=== PATIENT | female | born 1985 | race Caucasian/White ===

== ENCOUNTER 2020-09-21 15:52 | Outpatient (REF) | payer OTHER, SELFPAY ==
--- NOTE | 2020-09-21 | US_ITS ---
EXAMINATION: US PELVIC ULTRASOUND CLINICAL INFORMATION: Pelvic pain. COMPARISON: Prior imaging exams, most recent pelvic ultrasound November 2018. TECHNIQUE: Transabdominal and transvaginal pelvic ultrasound performed. FINDINGS: Uterus: 7.5 x 3.6 x 4.7 cm. Endometrial thickness 0.6 cm. No masses. Right ovary 3 x 1.7 x 1.6 cm with a volume of 4.3 mm. No masses. Left ovary: 3.3 x 2.5 x 2.1 cm with a volume of 9.1 mL. Cyst measuring 1.4 x 1.1 x 1.6 cm. Miscellaneous: Nabothian cysts noted. US/US transvaginal IMPRESSION: Cyst in the left ovary measuring approximately 1.5 cm.
--- NOTE | 2020-09-21 | US_ITS ---
EXAMINATION: US PELVIC ULTRASOUND CLINICAL INFORMATION: Pelvic pain. COMPARISON: Prior imaging exams, most recent pelvic ultrasound November 2018. TECHNIQUE: Transabdominal and transvaginal pelvic ultrasound performed. FINDINGS: Uterus: 7.5 x 3.6 x 4.7 cm. Endometrial thickness 0.6 cm. No masses. Right ovary 3 x 1.7 x 1.6 cm with a volume of 4.3 mm. No masses. Left ovary: 3.3 x 2.5 x 2.1 cm with a volume of 9.1 mL. Cyst measuring 1.4 x 1.1 x 1.6 cm. Miscellaneous: Nabothian cysts noted. US/US pelvic complete IMPRESSION: Cyst in the left ovary measuring approximately 1.5 cm.
== END 2020-09-21 15:53 | disposition home or self-care (01) ==
LOC: HO.US 15:52
PROVIDERS: PCP Physician Assistant; Visit Provider Physician Assistant
DX: R10.2 Pelvic and perineal pain (principal)
CPT/HCPCS: 76830; 76856

== ENCOUNTER 2024-12-30 09:56 | Outpatient (REF) | payer BC, SELFPAY ==
--- NOTE | ~2024-12-30 | XR_ITS ---
CLINICAL HISTORY: LUMBAGO WITH SCIATICA, LEFT SIDE 3 views lumbar spine Comparison: None Findings: Normal alignment. No acute fractures or dislocation. No significant degenerative change. Mild lower lumbar facet arthritis. Partial ossification of the iliolumbar ligaments. Bilateral sacroiliitis. IMPRESSION: Bilateral sacroiliitis. Mild lower lumbar facet arthritis. Otherwise negative. This document has been electronically signed by: Guillermo Mata MD on 12/30/2024 13:14:48
--- OUTSIDE RECORDS SUMMARY | 2024-12-30 10:26 | XMS_ITS ---
Author Organization [facility] Address [address] [place] [address] Care Team Providers Care Promotions Coordinator Name Role Phone RIP YU Unavailable [phone] ALLERGIES Allergen (clinical drug ingredient) Drug/Non Drug Allergy documented on EMR Reaction Allergy Type Onset Date Status bupropion / naltrexone Contrave hives Drug Allergy 07/13 Active REASON FOR VISIT Patient presents for weight management follow up. Previous weight was 159.4lbs. Current weight standing is 154.2lbs. Seca declined. No acute concerns needed to be addressed MEDICATIONS Medication SIG (Take, Route, Fr equency, Duration) Notes Start Date End Date Status Wegovy 1.7 MG/0.75ML 1.7 mg Subcutaneous weekly for 30 days Active methIMAzole 5 MG 1/2 tablet Orally Once a day Active Wegovy 1.7 MG/0.75ML INJECT 1.7MG SUBCUT ANEOUSLY WEEKLY for 28 Active SOCIAL HISTORY Tobacco Use: Social History Observation Description Date Details (start date - stop date) Never Smoker NA - NA Sex Assigned At : Social History Observation Description Sex Assigned At Unknown Tobacco Use/Smoking Question Answer Notes Are you a nonsmoker Section Notes: Alcohol: denies tob: denies drug: denies caffeine: coffee occasionally VITAL SIGNS Heart Rate 72 /min 11/13/2024 Blood pressure systolic 118 mm Hg 11/13/19 25 Blood pressure diastolic 78 mm Hg 025 Weight 154.2 lbs 11/13/2024 BMI 28.2 kg/m2 11/13/2024 Height 62 in 11/13/2024 Oximetry 99 % 11/13/2024 Encounters Encounter Location Date Provider Diagnosis [facility] [address] [place] [address] 11/13/2024 RIP YU BMI 28.0-28.9,adult Z68.28 ; Over weight E66.3 ; Hyperthyroidism E05.90 and Nutritional counseling Z71.3 ASSESSMENTS Encounter Date Diagnosis Assessment Notes Treatment Notes Treatment Clinical Notes Section Notes 11/13/2024 BMI 28.0-28.9,adult (ICD-10 - Z68.28) Joycelyn Is a 37-year-old female who presents office for a weight management f/u. 01/02/23: weight 191.5, BMI 35.02- Discuss lifestyle modification is extensively, LAYA cunha. [facility] provided. Patient to work on lifestyle modifications for the next four weeks, focusing on increasing water intake, stress reduction, sleep, high-protein, low carbohydrate, healthy fat. Will consider medication at next visit including phentermine, Contrave, Topamax, metformin. May consider GLP-1 after three consecutive months of weight loss, or pending labs as insulin and hemoglobin A-1 C were ordered today. 02/12/23: weight 1 93.3, BMI 35.35- patient encouraged to continue with lifestyle modifications. She is currently breast-feeding her [id number] child, and therefore recommended to not start any weight loss medications at this time. She plans on discontinuing breast-feeding in the next four weeks, so will consider medications at next visit including phentermine or Wegovy. She has taken phentermine in the past with success, but is looking for more long-term medication. Patient encouraged to continue going to the gym, being more consistent. Congratulate efforts of trying to improve meal planning.Patient drink plenty of water.Diabetic labs without concern. 03/25/23: Weight 191.3, BMI 34.99- patient presented today for weight management follow up. She had been taking 0.25mg of Wegovy for two weeks and has had potential associated side effects of diarrhea and N/V. She does admit it may be due to possible food poisoning from eating bad salmon on Saturday. She was told to continue the next two weeks on Wegovy and monitor side effects and to call this office if she continues with side effects. She was reeducated on appropriate injector use. Patient was also congratualted on progress made and encouraged to conitnue lifestyle changes. She will follow up in 4 weeks. 05/22/23: 183.87lbs/33, Patient states she has not been on Wegovy due to the fact that Wegovy is not in stock in any pharmacy. He does not want to try phentermine as she states that this is something that her bush hog operator has advised her not to be taking with her methimazole. We discussed with her that the only other FDA approved injectable medication for weight loss that can be prescribed through the pharmacy is Saxenda. We can try to send this to her pharmacy and see if there is availability as well as if her insurance will cover it. I will send the medication today. Instructed on use. Patient also was informed of compounded semaglutide if this medication is not available/in stock/if her insurance denies it. Patient is hesitant due to the ocampo. Discussed with her that options are limited and that these medications are in high wanted volume. 06/20/2023: Weight 180.8, BMI 33.07. Patient congratulated on effort. Is continuing to lose weight with success. We had to stop the Wegovy because of supply concern, so she was prescribed Saxenda last visit. We also discussed compounded semaglutide again, but she would like to continue through Saxenda through pharmacy until Wegovy becomes available again. She was not thoroughly educated on proper use of medication and how to taper, therefore extensively educated patient to do so today. Educated on 0.6 mg daily x 1 week, 1.2 mg daily x 1 week, 1.8 mg daily x 1 week, 2.4 mg daily x 1 week and 3.0 as therapeutic dose. Refilled Saxenda and pen needles. Educated on side effects as well. Patient understanding and thankful. Encouraged to continue with lifestyle modifications. Will follow-up in 4 weeks, sooner as needed. 01/27/24: BMI 31, Weight 172 lbs. Unable to find Saxenda or Wegovy secondary to national shortages. Patient does have [employer], therefore we will do Zepbound. We did talk about compounded semaglutide, but patient is worried about affordability. Dosing and pricing was discussed at length with the patient, for 2 months of doing the dosing. Patient will think about it. If Zepbound is covered, this could be an option. She is unable to tolerate Contrave secondary to an allergic reaction, and cannot go on phentermine secondary to hyperthyroidism. Patient educated on proper protein and hydration. Patient verbalizes understanding. Will see her in 4 weeks. 04/07/2024: Weight 175.5, BMI 32.1. Patient's weight overall unchanged, will continue with semaglutide 0.5 mg, and submit for Wegovy 1 mg. Discussed proper use, side effects, long-term risk, and lifestyle. Patient understanding. Discussed national shortage and prior authorization process. 05/27/2024: Weight 166, BMI 30.45. Patient congratulated and effort, continuing to lose slow, steady weight. Goal weight is around 150 pounds. Patient taking Wegovy 1 mg, has been great being mindful with portion control, water intake, less stress, and has been exercising more at the [facility]. Continue with Wegovy 1 mg, provided a prescription to [facility] pharmacy, but also a handwritten prescription due to concern with supply. Patient will follow-up in July. In the meantime, may need to refill, can continue with 1 mg of Wegovy or consider going up to 1.7 depending on progress. 07/30/2024: Weight 160, BMI 29.3. Patient congratulated on effort. In to the overweight category. Continue with Wegovy 1.7 mg. Going to increase the intensity/the amount of weight that she is lifting twice weekly at the gym. Implementing more protein. 09/21/2024: Weight 159, BMI 29.15. Patient's weight has maintained overall but when reviewing body scan she lost a pound of fat, gained half a pound of muscle. Pleased with progress. Will continue with Wegovy 1.7, not interested in increasing dose. Is actually interested in potentially tapering off of medication, the new year. Will follow-up in 8 weeks. Continue with increased protein and resistance training. 11/13/2024: Weight 154, BMI 28. Patient congratulated on effort. Continue with Wegovy 1.7 mg. Follow-up in 6 weeks for body scan. Patient states that her goal weight is 150 pounds, for which she is almost there. Wants to start tapering off the medication, by the end of spring/beginning of summer. Patient follow-up in 6 weeks or sooner as needed #Thyroid disease: patient to continue methimazole 5 mg. [employer]/A[employer] Observer/Gunner does not want patient taking phentermine as a weight loss medication. Time spent with patient 30 minutes with greater than 50% on patient education and care coordination. All patient questions answered in office today. Patient should call the office in the meantime with any questions or concerns. Case discussed with collaborating physician Nani Benitez who reviewed the assessment and plan. Chart, medications, labs, vital signs reviewed. Dictation was accomplished with the use of IMT voice recognition software, prone to medical misidentifications and grammatical errors. This is unintentional and the practitioner does try to identify and correct these, but some could still be present. Please do not hesitate to contact practitioner for clarification. 11/13/2024 Over weight (ICD-10 - E66.3) Joycelyn Is a 37-year-old female who presents office for a weight management f/u. 01/02/23: weight 191.5, BMI 35.02- Discuss lifestyle modification is extensively, LAYA cunha. [facility] provided. Patient to work on lifestyle modifications for the next four weeks, focusing on increasing water intake, stress reduction, sleep, high-protein, low carbohydrate, healthy fat. Will consider medication at next visit including phentermine, Contrave, Topamax, metformin. May consider GLP-1 after three consecutive months of weight loss, or pending labs as insulin and hemoglobin A-1 C were ordered today. 02/12/23: weight 1 93.3, BMI 35.35- patient encouraged to continue with lifestyle modifications. She is currently breast-feeding her [id number] child, and therefore recommended to not start any weight loss medications at this time. She plans on discontinuing breast-feeding in the next four weeks, so will consider medications at next visit including phentermine or Wegovy. She has taken phentermine in the past with success, but is looking for more long-term medication. Patient encouraged to continue going to the gym, being more consistent. Congratulate efforts of trying to improve meal planning.Patient drink plenty of water.Diabetic labs without concern. 03/25/23: Weight 191.3, BMI 34.99- patient presented today for weight management follow up. She had been taking 0.25mg of Wegovy for two weeks and has had potential associated side effects of diarrhea and N/V. She does admit it may be due to possible food poisoning from eating bad salmon on Saturday. She was told to continue the next two weeks on Wegovy and monitor side effects and to call this office if she continues with side effects. She was reeducated on appropriate injector use. Patient was also congratualted on progress made and encouraged to conitnue lifestyle changes. She will follow up in 4 weeks. 05/22/23: 183.87lbs/33, Patient states she has not been on Wegovy due to the fact that Wegovy is not in stock in any pharmacy. He does not want to try phentermine as she states that this is something that her bush hog operator has advised her not to be taking with her methimazole. We discussed with her that the only other FDA approved injectable medication for weight loss that can be prescribed through the pharmacy is Saxenda. We can try to send this to her pharmacy and see if there is availability as well as if her insurance will cover it. I will send the medication today. Instructed on use. Patient also was informed of compounded semaglutide if this medication is not available/in stock/if her insurance denies it. Patient is hesitant due to the ocampo. Discussed with her that options are limited and that these medications are in high wanted volume. 06/20/2023: Weight 180.8, BMI 33.07. Patient congratulated on effort. Is continuing to lose weight with success. We had to stop the Wegovy because of supply concern, so she was prescribed Saxenda last visit. We also discussed compounded semaglutide again, but she would like to continue through Saxenda through pharmacy until Wegovy becomes available again. She was not thoroughly educated on proper use of medication and how to taper, therefore extensively educated patient to do so today. Educated on 0.6 mg daily x 1 week, 1.2 mg daily x 1 week, 1.8 mg daily x 1 week, 2.4 mg daily x 1 week and 3.0 as therapeutic dose. Refilled Saxenda and pen needles. Educated on side effects as well. Patient understanding and thankful. Encouraged to continue with lifestyle modifications. Will follow-up in 4 weeks, sooner as needed. 01/27/24: BMI 31, Weight 172 lbs. Unable to find Saxenda or Wegovy secondary to national shortages. Patient does have [employer], therefore we will do Zepbound. We did talk about compounded semaglutide, but patient is worried about affordability. Dosing and pricing was discussed at length with the patient, for 2 months of doing the dosing. Patient will think about it. If Zepbound is covered, this could be an option. She is unable to tolerate Contrave secondary to an allergic reaction, and cannot go on phentermine secondary to hyperthyroidism. Patient educated on proper protein and hydration. Patient verbalizes understanding. Will see her in 4 weeks. 04/07/2024: Weight 175.5, BMI 32.1. Patient's weight overall unchanged, will continue with semaglutide 0.5 mg, and submit for Wegovy 1 mg. Discussed proper use, side effects, long-term risk, and lifestyle. Patient understanding. Discussed national shortage and prior authorization process. 05/27/2024: Weight 166, BMI 30.45. Patient congratulated and effort, continuing to lose slow, steady weight. Goal weight is around 150 pounds. Patient taking Wegovy 1 mg, has been great being mindful with portion control, water intake, less stress, and has been exercising more at the [facility]. Continue with Wegovy 1 mg, provided a prescription to [facility] pharmacy, but also a handwritten prescription due to concern with supply. Patient will follow-up in July. In the meantime, may need to refill, can continue with 1 mg of Wegovy or consider going up to 1.7 depending on progress. 07/30/2024: Weight 160, BMI 29.3. Patient congratulated on effort. In to the overweight category. Continue with Wegovy 1.7 mg. Going to increase the intensity/the amount of weight that she is lifting twice weekly at the gym. Implementing more protein. 09/21/2024: Weight 159, BMI 29.15. Patient's weight has maintained overall but when reviewing body scan she lost a pound of fat, gained half a pound of muscle. Pleased with progress. Will continue with Wegovy 1.7, not interested in increasing dose. Is actually interested in potentially tapering off of medication, the new year. Will follow-up in 8 weeks. Continue with increased protein and resistance training. 11/13/2024: Weight 154, BMI 28. Patient congratulated on effort. Continue with Wegovy 1.7 mg. Follow-up in 6 weeks for body scan. Patient states that her goal weight is 150 pounds, for which she is almost there. Wants to start tapering off the medication, by the end of spring/beginning of summer. Patient follow-up in 6 weeks or sooner as needed #Thyroid disease: patient to continue methimazole 5 mg. [employer]/Gunner does not want patient taking phentermine as a weight loss medication. Time spent with patient 30 minutes with greater than 50% on patient education and care coordination. All patient questions answered in office today. Patient should call the office in the meantime with any questions or concerns. Case discussed with collaborating physician Nani Benitez who reviewed the assessment and plan. Chart, medications, labs, vital signs reviewed. Dictation was accomplished with the use of IMT voice recognition software, prone to medical misidentifications and grammatical errors. This is unintentional and the practitioner does try to identify and correct these, but some could still be present. Please do not hesitate to contact practitioner for clarification. 11/13/2024 Hyperthyroidism (ICD-10 - E05.90) Joycelyn Is a 37-year-old female who presents office for a weight management f/u. 01/02/23: weight 191.5, BMI 35.02- Discuss lifestyle modification is extensively, LAYA cunha. [facility] provided. Patient to work on lifestyle modifications for the next four weeks, focusing on increasing water intake, stress reduction, sleep, high-protein, low carbohydrate, healthy fat. Will consider medication at next visit including phentermine, Contrave, Topamax, metformin. May consider GLP-1 after three consecutive months of weight loss, or pending labs as insulin and hemoglobin A-1 C were ordered today. 02/12/23: weight 1 93.3, BMI 35.35- patient encouraged to continue with lifestyle modifications. She is currently breast-feeding her 19-fijhx-hje child, and therefore recommended to not start any weight loss medications at this time. She plans on discontinuing breast-feeding in the next four weeks, so will consider medications at next visit including phentermine or Wegovy. She has taken phentermine in the past with success, but is looking for more long-term medication. Patient encouraged to continue going to the gym, being more consistent. Congratulate efforts of trying to improve meal planning.Patient drink plenty of water.Diabetic labs without concern. 03/25/23: Weight 191.3, BMI 34.99- patient presented today for weight management follow up. She had been taking 0.25mg of Wegovy for two weeks and has had potential associated side effects of diarrhea and N/V. She does admit it may be due to possible food poisoning from eating bad salmon on Saturday. She was told to continue the next two weeks on Wegovy and monitor side effects and to call this office if she continues with side effects. She was reeducated on appropriate injector use. Patient was also congratualted on progress made and encouraged to conitnue lifestyle changes. She will follow up in 4 weeks. 05/22/23: 183.87lbs/33, Patient states she has not been on Wegovy due to the fact that Wegovy is not in stock in any pharmacy. He does not want to try phentermine as she states that this is something that her bush hog operator has advised her not to be taking with her methimazole. We discussed with her that the only other FDA approved injectable medication for weight loss that can be prescribed through the pharmacy is Saxenda. We can try to send this to her pharmacy and see if there is availability as well as if her insurance will cover it. I will send the medication today. Instructed on use. Patient also was informed of compounded semaglutide if this medication is not available/in stock/if her insurance denies it. Patient is hesitant due to the ocampo. Discussed with her that options are limited and that these medications are in high wanted volume. 06/20/2023: Weight 180.8, BMI 33.07. Patient congratulated on effort. Is continuing to lose weight with success. We had to stop the Wegovy because of supply concern, so she was prescribed Saxenda last visit. We also discussed compounded semaglutide again, but she would like to continue through Saxenda through pharmacy until Wegovy becomes available again. She was not thoroughly educated on proper use of medication and how to taper, therefore extensively educated patient to do so today. Educated on 0.6 mg daily x 1 week, 1.2 mg daily x 1 week, 1.8 mg daily x 1 week, 2.4 mg daily x 1 week and 3.0 as therapeutic dose. Refilled Saxenda and pen needles. Educated on side effects as well. Patient understanding and thankful. Encouraged to continue with lifestyle modifications. Will follow-up in 4 weeks, sooner as needed. 01/27/24: BMI 31, Weight 172 lbs. Unable to find Saxenda or Wegovy secondary to national shortages. Patient does have [employer], therefore we will do Zepbound. We did talk about compounded semaglutide, but patient is worried about affordability. Dosing and pricing was discussed at length with the patient, for 2 months of doing the dosing. Patient will think about it. If Zepbound is covered, this could be an option. She is unable to tolerate Contrave secondary to an allergic reaction, and cannot go on phentermine secondary to hyperthyroidism. Patient educated on proper protein and hydration. Patient verbalizes understanding. Will see her in 4 weeks. 04/07/2024: Weight 175.5, BMI 32.1. Patient's weight overall unchanged, will continue with semaglutide 0.5 mg, and submit for Wegovy 1 mg. Discussed proper use, side effects, long-term risk, and lifestyle. Patient understanding. Discussed national shortage and prior authorization process. 05/27/2024: Weight 166, BMI 30.45. Patient congratulated and effort, continuing to lose slow, steady weight. Goal weight is around 150 pounds. Patient taking Wegovy 1 mg, has been great being mindful with portion control, water intake, less stress, and has been exercising more at the [facility]. Continue with Wegovy 1 mg, provided a prescription to [facility] pharmacy, but also a handwritten prescription due to concern with supply. Patient will follow-up in July. In the meantime, may need to refill, can continue with 1 mg of Wegovy or consider going up to 1.7 depending on progress. 07/30/2024: Weight 160, BMI 29.3. Patient congratulated on effort. In to the overweight category. Continue with Wegovy 1.7 mg. Going to increase the intensity/the amount of weight that she is lifting twice weekly at the gym. Implementing more protein. 09/21/2024: Weight 159, BMI 29.15. Patient's weight has maintained overall but when reviewing body scan she lost a pound of fat, gained half a pound of muscle. Pleased with progress. Will continue with Wegovy 1.7, not interested in increasing dose. Is actually interested in potentially tapering off of medication, the new year. Will follow-up in 8 weeks. Continue with increased protein and resistance training. 11/13/2024: Weight 154, BMI 28. Patient congratulated on effort. Continue with Wegovy 1.7 mg. Follow-up in 6 weeks for body scan. Patient states that her goal weight is 150 pounds, for which she is almost there. Wants to start tapering off the medication, by the end of spring/beginning of summer. Patient follow-up in 6 weeks or sooner as needed #Thyroid disease: patient to continue methimazole 5 mg. [employer]/Gunner does not want patient taking phentermine as a weight loss medication. Time spent with patient 30 minutes with greater than 50% on patient education and care coordination. All patient questions answered in office today. Patient should call the office in the meantime with any questions or concerns. Case discussed with collaborating physician Nani Benitez who reviewed the assessment and plan. Chart, medications, labs, vital signs reviewed. Dictation was accomplished with the use of IMT voice recognition software, prone to medical misidentifications and grammatical errors. This is unintentional and the practitioner does try to identify and correct these, but some could still be present. Please do not hesitate to contact practitioner for clarification. 11/13/2024 Nutritional counseling (ICD-10 - Z71.3) Joycelyn Is a 37-year-old female who presents office for a weight management f/u. 01/02/23: weight 191.5, BMI 35.02- Discuss lifestyle modification is extensively, LAYA cunha. [facility] provided. Patient to work on lifestyle modifications for the next four weeks, focusing on increasing water intake, stress reduction, sleep, high-protein, low carbohydrate, healthy fat. Will consider medication at next visit including phentermine, Contrave, Topamax, metformin. May consider GLP-1 after three consecutive months of weight loss, or pending labs as insulin and hemoglobin A-1 C were ordered today. 02/12/23: weight 1 93.3, BMI 35.35- patient encouraged to continue with lifestyle modifications. She is currently breast-feeding her 82-mzfas-lta child, and therefore recommended to not start any weight loss medications at this time. She plans on discontinuing breast-feeding in the next four weeks, so will consider medications at next visit including phentermine or Wegovy. She has taken phentermine in the past with success, but is looking for more long-term medication. Patient encouraged to continue going to the gym, being more consistent. Congratulate efforts of trying to improve meal planning.Patient drink plenty of water.Diabetic labs without concern. 03/25/23: Weight 191.3, BMI 34.99- patient presented today for weight management follow up. She had been taking 0.25mg of Wegovy for two weeks and has had potential associated side effects of diarrhea and N/V. She does admit it may be due to possible food poisoning from eating bad salmon on Saturday. She was told to continue the next two weeks on Wegovy and monitor side effects and to call this office if she continues with side effects. She was reeducated on appropriate injector use. Patient was also congratualted on progress made and encouraged to conitnue lifestyle changes. She will follow up in 4 weeks. 05/22/23: 183.87lbs/33, Patient states she has not been on Wegovy due to the fact that Wegovy is not in stock in any pharmacy. He does not want to try phentermine as she states that this is something that her bush hog operator has advised her not to be taking with her methimazole. We discussed with her that the only other FDA approved injectable medication for weight loss that can be prescribed through the pharmacy is Saxenda. We can try to send this to her pharmacy and see if there is availability as well as if her insurance will cover it. I will send the medication today. Instructed on use. Patient also was informed of compounded semaglutide if this medication is not available/in stock/if her insurance denies it. Patient is hesitant due to the ocampo. Discussed with her that options are limited and that these medications are in high wanted volume. 06/20/2023: Weight 180.8, BMI 33.07. Patient congratulated on effort. Is continuing to lose weight with success. We had to stop the Wegovy because of supply concern, so she was prescribed Saxenda last visit. We also discussed compounded semaglutide again, but she would like to continue through Saxenda through pharmacy until Wegovy becomes available again. She was not thoroughly educated on proper use of medication and how to taper, therefore extensively educated patient to do so today. Educated on 0.6 mg daily x 1 week, 1.2 mg daily x 1 week, 1.8 mg daily x 1 week, 2.4 mg daily x 1 week and 3.0 as therapeutic dose. Refilled Saxenda and pen needles. Educated on side effects as well. Patient understanding and thankful. Encouraged to continue with lifestyle modifications. Will follow-up in 4 weeks, sooner as needed. 01/27/24: BMI 31, Weight 172 lbs. Unable to find Saxenda or Wegovy secondary to national shortages. Patient does have Blue [employer], therefore we will do Zepbound. We did talk about compounded semaglutide, but patient is worried about affordability. Dosing and pricing was discussed at length with the patient, for 2 months of doing the dosing. Patient will think about it. If Zepbound is covered, this could be an option. She is unable to tolerate Contrave secondary to an allergic reaction, and cannot go on phentermine secondary to hyperthyroidism. Patient educated on proper protein and hydration. Patient verbalizes understanding. Will see her in 4 weeks. 04/07/2024: Weight 175.5, BMI 32.1. Patient's weight overall unchanged, will continue with semaglutide 0.5 mg, and submit for Wegovy 1 mg. Discussed proper use, side effects, long-term risk, and lifestyle. Patient understanding. Discussed national shortage and prior authorization process. 05/27/2024: Weight 166, BMI 30.45. Patient congratulated and effort, continuing to lose slow, steady weight. Goal weight is around 150 pounds. Patient taking Wegovy 1 mg, has been great being mindful with portion control, water intake, less stress, and has been exercising more at the [facility]. Continue with Wegovy 1 mg, provided a prescription to [facility] specialty pharmacy, but also a handwritten prescription due to concern with supply. Patient will follow-up in July. In the meantime, may need to refill, can continue with 1 mg of Wegovy or consider going up to 1.7 depending on progress. 07/30/2024: Weight 160, BMI 29.3. Patient congratulated on effort. In to the overweight category. Continue with Wegovy 1.7 mg. Going to increase the intensity/the amount of weight that she is lifting twice weekly at the gym. Implementing more protein. 09/21/2024: Weight 159, BMI 29.15. Patient's weight has maintained overall but when reviewing body scan she lost a pound of fat, gained half a pound of muscle. Pleased with progress. Will continue with Wegovy 1.7, not interested in increasing dose. Is actually interested in potentially tapering off of medication, the new year. Will follow-up in 8 weeks. Continue with increased protein and resistance training. 11/13/2024: Weight 154, BMI 28. Patient congratulated on effort. Continue with Wegovy 1.7 mg. Follow-up in 6 weeks for body scan. Patient states that her goal weight is 150 pounds, for which she is almost there. Wants to start tapering off the medication, by the end of spring/beginning of summer. Patient follow-up in 6 weeks or sooner as needed #Thyroid disease: patient to continue methimazole 5 mg. Enlisted Aircrew/Aerial Observer/Gunner does not want patient taking phentermine as a weight loss medication. Time spent with patient 30 minutes with greater than 50% on patient education and care coordination. All patient questions answered in office today. Patient should call the office in the meantime with any questions or concerns. Case discussed with collaborating physician Nani Benitez who reviewed the assessment and plan. Chart, medications, labs, vital signs reviewed. Dictation was accomplished with the use of IMT voice recognition software, prone to medical misidentifications and grammatical errors. This is unintentional and the practitioner does try to identify and correct these, but some could still be present. Please do not hesitate to contact practitioner for clarification. PLAN OF TREATMENT Medication Medication Name Sig Start Date Stop Date Notes Wegovy 1.7 MG/0.75ML 1.7 mg Subcutaneous weekly for 30 days Progress Notes * Joycelyn LOPEZDOB:1985 (39 yo F)Acc No.[id number]:11/13/2024 Patient:??Joycelyn LOPEZ Provider:??RIP YU PA-C :1985?Age:39 Y?Sex:Fe male Date:11/13/2024 Address:[address] [place], [place] [id number] Subjective: * Chief Complaints: * ?1. Patient presents fo r weight management follow up. Previous weight was 159.4lbs. Current weight standing is 154.2lbs. Seca declined. No acute concerns needed to be addressed. * HPI: ?Constitutional:? Joycelyn is a pleasant 39-year-old female who presents the office for weight management follow-up. Declines to go today but will get at next visit. Taking Wegovy 1.7 mg with compliance, without any side effects, losing slow steady weight. Not interested in increasing dose. Plans to taper off by the summer. Focusing more on strength training but limited due to back pain. Increased more water intake. FOllowing with orthopedics fr back pain. * ROS:?Constitutional: Patient denies any excessive fatigue with exercise, + intentional weight loss, no fever and no night sweats ???Eyes: No eye discharge, no itching, no redness. ???Ear nose throat: No sore throat, postnasal drip, runny nose, Sneezing ???Cardiovascular: No chest pain, no shortness of breath, no dyspnea on exertion, no PND, no orthopnea, no irregular pulse ???Respiratory: No chronic cough, no hemoptysis, no sputum, no wheezing ???GI, no diarrhea, no constipation no blood in the stools, no pain associated with eating, no indigestion ???Genitourinary: No painful urination no hesitancy no blood in the urine ???Musculoskeletal, no limitations to walking and running, no joint deformity, no joint stiffness, no chronic back pain, no noise with joint movement ???Integumentary, bilateral ankle and lower extremity pruritic rash. No new changes in skin moles ???Neurological: No history of seizures, memory loss, No language dysfunction, No inability to concentrate, no localized weakness, no sensation loss, no confusion ???Psychiatric: No depression, no suicidal thoughts, no anxiety ???Endocrine: No polyuria no polyphagia or polydipsia, no heat intolerance no cold intolerance ???Hematological: No easy bruising or Lymph node swelling. * Medical History:??Hyperthyro idism, Obesity (BMI 30-39.9), Anxiety, Sciatica, unspecified side. * Surgical History:??C Section 2 times . * Hospitalization/Major Diagno stic Procedure:??Denies Past Hospitalization. * Family History:??Father: ali ve 80 yrs.??Mother: alive 70 yrs.?? family HX of colon cancer, ovarian cancer, Heart disease, Osteoporosis, memory problems, hypertesion. * Social History:?Tobacco Use:??Tobacco Use/Smoking??Are you a??nonsmoker.?Alcohol: denies ???tob: denies ???drug: denies ???caffeine: coffee occasionally. * Medications:??Taking methIMA zole 5 MG Tablet 1/2 tablet Orally Once a day , Taking Wegovy 1.7 MG/0.75ML Solution Auto-injector INJECT 1.7MG SUBCUTANEOUSLY WEEKLY , Medication List reviewed and reconciled with the patient * Allergies:??Contrave: hives - Onset Date 08/06/2023. Objective: * Vitals:??HR:72/min, BP:118/7 8mm Hg, Wt:154.2lbs, BMI:28.2Index, Ht: 62 in, Oxygen sat %:99%. * Physical Examination:?General: Age appropriate female, well appearing, no acute distress, speaking in full sentences without respiratory compromise. Well groomed, well developed. ?Skin: Warm, dry and intact. ?HEENT: Normocephalic/atraumatic. ?Neck/Thyroid: Supple. Full ROM. No lymphadenoapthy. ?Lung: Clear to auscultation bilaterally, no wheezes, rales or rhonchi. No barrel chest. Equal chest rise and fall bilaterally. ?Cardiac: S1 and S2 appreciated. No murmurs/rubs or gallops. ?Neuro: CN II-XI grossly intact. Steady gait with ambulation observed. ?Psych: Stable mood and affect. Assessment: * Assessment: 1.??Over weight - E66.3 (Ely vazquez)??2.??BMI 28.0-28.9,adult - Z68.28??3.??Hyperthyroidism - E05.90??4.??Nutritional counseling - Z71.3?? Joycelyn Is a 37-year-old femal e who presents office for a weight management f/u. 01/02/23: weight 191.5, BMI 35.02- Discuss lifestyle modification is extensively, LAYA cunha. MICC provided. Patient to work on lifestyle modifications for the next four weeks, focusing on increasing water intake, stress reduction, sleep, high- protein, low carbohydrate, healthy fat. Will consider medication at next visit including phentermine, Contrave, Topamax, metformin. May consider GLP-1 after three consecutive months of weight loss, or pending labs as insulin and hemoglobin A-1 C were ordered today. 02/12/23: weight 1 93.3, BMI 35.35- patient encouraged to continue with lifestyle modifications. She is currently breast-feeding her [id number] child, and therefore recommended to not start any weight loss medications at this time. She plans on discontinuing breast-feeding in the next four weeks, so will consider medications at next visit including phentermine or Wegovy. She has taken phentermine in the past with success, but is looking for more long-term medication. Patient encouraged to continue going to the gym, being more consistent. Congratulate efforts of trying to improve meal planning.Patient drink plenty of water.Diabetic labs without concern. 03/25/23: Weight 191.3, BMI 34.99- patient presented today for weight management follow up. She had been taking 0.25mg of Wegovy for two weeks and has had potential associated side effects of diarrhea and N/V. She does admit it may be due to possible food poisoning from eating bad salmon on Saturday. She was told to continue the next two weeks on Wegovy and monitor side effects and to call this office if she continues with side effects. She was reeducated on appropriate injector use. Patient was also congratualted on progress made and encouraged to conitnue lifestyle changes. She will follow up in 4 weeks. 05/22/23: 183.87lbs/33, Patient states she has not been on Wegovy due to the fact that Wegovy is not in stock in any pharmacy. He does not want to try phentermine as she states that this is something that her bush hog operator has advised her not to be taking with her methimazole. We discussed with her that the only other FDA approved injectable medication for weight loss that can be prescribed through the pharmacy is Saxenda. We can try to send this to her pharmacy and see if there is availability as well as if her insurance will cover it. I will send the medication today. Instructed on use. Patient also was informed of compounded semaglutide if this medication is not available/in stock/if her insurance denies it. Patient is hesitant due to the ocampo. Discussed with her that options are limited and that these medications are in high wanted volume. 06/20/2023: Weight 180.8, BMI 33.07. Patient congratulated on effort. Is continuing to lose weight with success. We had to stop the Wegovy because of supply concern, so she was prescribed Saxenda last visit. We also discussed compounded semaglutide again, but she would like to continue through Saxenda through pharmacy until Wegovy becomes available again. She was not thoroughly educated on proper use of medication and how to taper, therefore extensively educated patient to do so today. Educated on 0.6 mg daily x 1 week, 1.2 mg daily x 1 week, 1.8 mg daily x 1 week, 2.4 mg daily x 1 week and 3.0 as therapeutic dose. Refilled Saxenda and pen needles. Educated on side effects as well. Patient understanding and thankful. Encouraged to continue with lifestyle modifications. Will follow-up in 4 weeks, sooner as needed. 01/27/24: BMI 31, Weight 172 lbs. Unable to find Saxenda or Wegovy secondary to national shortages. Patient does have Blue Cross, therefore we will do Zepbound. We did talk about compounded semaglutide, but patient is worried about affordability. Dosing and pricing was discussed at length with the patient, for 2 months of doing the dosing. Patient will think about it. If Zepbound is covered, this could be an option. She is unable to tolerate Contrave secondary to an allergic reaction, and cannot go on phentermine secondary to hyperthyroidism. Patient educated on proper protein and hydration. Patient verbalizes understanding. Will see her in 4 weeks. 04/07/2024: Weight 175.5, BMI 32.1. Patient's weight overall unchanged, will continue with semaglutide 0.5 mg, and submit for Wegovy 1 mg. Discussed proper use, side effects, long-term risk, and lifestyle. Patient understanding. Discussed national shortage and prior authorization process. 05/27/2024: Weight 166, BMI 30.45. Patient congratulated and effort, continuing to lose slow, steady weight. Goal weight is around 150 pounds. Patient taking Wegovy 1 mg, has been great being mindful with portion control, water intake, less stress, and has been exercising more at the [facility]. Continue with Wegovy 1 mg, provided a prescription to [facility] specialty pharmacy, but also a handwritten prescription due to concern with supply. Patient will follow-up in July. In the meantime, may need to refill, can continue with 1 mg of Wegovy or consider going up to 1.7 depending on progress. 07/30/2024: Weight 160, BMI 29.3. Patient congratulated on effort. In to the overweight category. Continue with Wegovy 1.7 mg. Going to increase the intensity/the amount of weight that she is lifting twice weekly at the gym. Implementing more protein. 09/21/2024: Weight 159, BMI 29.15. Patient's weight has maintained overall but when reviewing body scan she lost a pound of fat, gained half a pound of muscle. Pleased with progress. Will continue with Wegovy 1.7, not interested in increasing dose. Is actually interested in potentially tapering off of medication, the new year. Will follow-up in 8 weeks. Continue with increased protein and resistance training. 11/13/2024: Weight 154, BMI 28. Patient congratulated on effort. Continue with Wegovy 1.7 mg. Follow-up in 6 weeks for body scan. Patient states that her goal weight is 150 pounds, for which she is almost there. Wants to start tapering off the medication, by the end of spring/beginning of summer. Patient follow-up in 6 weeks or sooner as needed #Thyroid disease: patient to continue methimazole 5 mg. Enlisted Aircrew/Aerial Observer/Gunner does not want patient taking phentermine as a weight loss medication. Time spent with patient 30 minutes with greater than 50% on patient education and care coordination. All patient questions answered in office today. Patient should call the office in the meantime with any questions or concerns. Case discussed with collaborating physician Nani Benitez who reviewed the assessment and plan. Chart, medications, labs, vital signs reviewed. Dictation was accomplished with the use of IMT voice recognition software, prone to medical misidentifications and grammatical errors. This is unintentional and the practitioner does try to identify and correct these, but some could still be present. Please do not hesitate to contact practitioner for clarification. Plan: * Treatment: * Procedure Codes:??G0447 FCE- FCE BEHAVRL CNSL OBESITY 15 MIN, Modifiers: 59 * Images: Billing Information: * Visit Code:?? 24554 Office Visit, Est Pt., Level 3. * Procedure Codes:?? G0447 FCE-FCE BEHAVRL CNSL OBESITY 15 MIN. Modifiers: 59 * Sign off status: Completed true * Provider:??RIP YU PA-C Date:??01/2025 History and Physical Notes * HPI (History of Present Illness) Category Sub-Category Detail Notes Category Not es Constitutional Joycelyn is a pl easant 39-year-old female who presents the office for weight management follow-up. Declines to go today but will get at next visit. Taking Wegovy 1.7 mg with compliance, without any side effects, losing slow steady weight. Not interested in increasing dose. Plans to taper off by the summer. Focusing more on strength training but limited due to back pain. Increased more water intake. FOllowing with orthopedics fr back pain. Physical Examination Category Sub-Category Detail Notes Section Note s General: Age appropriate female, well appearing, no acute distress, speaking in full sentences without respiratory compromise. Well groomed, well developed. Skin: Warm, dry and intact. HEENT: Normocephalic/atraumatic. Neck/Thyroid: Supple. Full ROM. No lymphadenoapthy. Lung: Clear to auscultation bilaterally, no wheezes, rales or rhonchi. No barrel chest. Equal chest rise and fall bilaterally. Cardiac: S1 and S2 appreciated. No murmurs/rubs or gallops. Neuro: CN II-XI grossly intact. Steady gait with ambulation observed. Psych: Stable mood and affect
--- OUTSIDE RECORDS SUMMARY | 2024-12-30 10:26 | XMS_ITS ---
Author Organization [facility] Address [address] [place] [address] Care Team Providers Care Investment Banking Associate Name Role Phone Christiana Vasques Primary Care Provider Parisa Teran Unavailable [phone] REASON FOR VISIT pap Encounters Encounter Location Date Provider Diagnosis [place] [address] [place] [address] 11/03/2024 Christiana Vasques Plan Of Treatment Next Appt Details Provider Name:Parisa linares, 11/01/2025 10:30:00 AM, [address] [place] [address], [phone], Progress Notes * AIDAN JENNINGSDOB:1985 (39 yo F)Acc No.[id number]:11/03/2024 Patient:?AIDAN JENNINGS :1985???Age:39 Y???Sex:Female Address:[address] [place] [address], [phone] * true * Date:? Generated for Gokul benjamin/Fadumo/eTransmitting on:?12/30/2024 10:25 AM EST
--- OUTSIDE RECORDS SUMMARY | 2024-12-30 10:26 | XMS_ITS ---
Author Organization [facility] Address [address] [place] [address] Care Team Providers Care 3Rd Grade Teacher Name Role Phone Christiana Vasques Primary Care Provider [phone] Parisa Teran Unavailable [phone] REASON FOR VISIT RE:pap Encounters Encounter Location Date Provider Diagnosis [place] [address] [place] [address] 11/06/2024 Parisa Teran Plan Of Treatment Next Appt Details Provider Name:Parisa linares, 11/01/2025 10:30:00 AM, [address] [place] [address], [phone], Progress Notes * AIDAN JENNINGSDOB:1985 (39 yo F)Acc No.[id number]:11/06/2024 Patient:?AIDAN JENNINGS :1985???Age:39 Y???Sex:Female Address:[address] [place] [address], [phone] * true * Date:? Generated for Axeli cassidy/Fadumo/eTransmitting on:?12/30/2024 10:26 AM EST
--- OUTSIDE RECORDS SUMMARY | 2024-12-30 10:26 | XMS_ITS ---
Author Organization [email or web address] Address [address] [place] [address] Care Team Providers Care Private Investigator Name Role Phone RIP YU Unavailable [phone] ALLERGIES Allergen (clinical drug ingredient) Drug/Non Drug Allergy documented on EMR Reaction Allergy Type Onset Date Status bupropion / naltrexone Contrave hives Drug Allergy 07/13 Active REASON FOR VISIT Patient presents for weight management follow up. Previous weight was 154lbs, current weight is standing 152lbs. The patient has no concerns or questions needed to be addressed MEDICATIONS Medication SIG (Take, Route, Fr equency, Duration) Notes Start Date End Date Status methIMAzole 5 MG 1/2 tablet Orally Once a day Active Wegovy 1.7 MG/0.75ML INJECT 1.7MG SUBCUT ANEOUSLY ONCE A WEEK for 28 Active Wegovy 1.7 MG/0.75ML 1.7 mg Subcutaneous weekly for 30 days Active SOCIAL HISTORY Tobacco Use: Social History Observation Description Date Details (start date - stop date) Never Smoker NA - NA Sex Assigned At : Social History Observation Description Sex Assigned At Unknown Tobacco Use/Smoking Question Answer Notes Are you a nonsmoker Section Notes: Alcohol: denies tob: denies drug: denies caffeine: coffee occasionally VITAL SIGNS Heart Rate 73 /min 12/29/2024 Blood pressure systolic 118 mm Hg 12/29/19 25 Blood pressure diastolic 76 mm Hg 025 Weight 152.0 lbs 12/29/2024 BMI 27.8 kg/m2 12/29/2024 Height 62 in 12/29/2024 Oximetry 99 % 12/29/2024 Encounters Encounter Location Date Provider Diagnosis [facility] [address] [place] [address] 12/29/2024 RIP YU BMI 27.0-27.9,adult Z68.27 ; Over weight E66.3 ; Hyperthyroidism E05.90 and Nutritional counseling Z71.3 ASSESSMENTS Encounter Date Diagnosis Assessment Notes Treatment Notes Treatment Clinical Notes Section Notes 12/29/2024 BMI 27.0-27.9,adult (ICD-10 - Z68.27) Joycelyn Is a 39-year-old female who presents office for a weight management f/u. 01/02/23: weight 191.5, BMI 35.02- Discuss lifestyle modification is extensively, LAYA cunha. [facility] provided. Patient to work on lifestyle modifications [...] lifestyle modifications. 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 Continue with Wegovy 1 mg, provided a prescription to [facility] specialty pharmacy, but also a handwritten [...] by the end of spring/beginning of summer. 12/29/2024: Weight 152, BMI 27. Patient congratulated and effort, continuing to lose slow, steady weight. Taking Wegovy 1.7 mg, will continue until February for patient's birthday, then consider tapering down. Patient is feeling very well, attending exercise classes, eating higher protein. Continue with Wegovy 1.7 mg. Patient follow-up in 4-6 weeks or sooner as needed #Thyroid disease: patient to continue methimazole 5 mg. Pbx Wire Chief does not want patient taking phentermine as [...] Dictation was accomplished with the use of IQMax voice recognition software, prone to medical misidentifications and grammatical errors. This is unintentional and the practitioner does try to identify and correct these, but some could still be present. Please do not hesitate to contact practitioner for clarification. 12/29/2024 Over weight (ICD-10 - E66.3) Joycelyn Is a 39-year-old female who presents office for a weight management f/u. 01/02/23: weight 191.5, BMI 35.02- Discuss lifestyle modification is extensively, LAYA cunha. [facility] provided. Patient to work on lifestyle modifications [...] lifestyle modifications. 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 Continue with Wegovy 1 mg, provided a prescription to [facility] specialty pharmacy, but also a handwritten [...] by the end of spring/beginning of summer. 12/29/2024: Weight 152, BMI 27. Patient congratulated and effort, continuing to lose slow, steady weight. Taking Wegovy 1.7 mg, will continue until February for patient's birthday, then consider tapering down. Patient is feeling very well, attending exercise classes, eating higher protein. Continue with Wegovy 1.7 mg. Patient follow-up in 4-6 weeks or sooner as needed #Thyroid disease: patient to continue methimazole 5 mg. Pbx Wire Chief does not want patient taking phentermine as [...] Dictation was accomplished with the use of IQMax voice recognition software, prone to medical misidentifications and grammatical errors. This is unintentional and the practitioner does try to identify and correct these, but some could still be present. Please do not hesitate to contact practitioner for clarification. 12/29/2024 Hyperthyroidism (ICD-10 - E05.90) Joycelyn Is a 39-year-old female who presents office for a weight management f/u. 01/02/23: weight 191.5, BMI 35.02- Discuss lifestyle modification is extensively, LAYA cunha. [facility] provided. Patient to work on lifestyle modifications [...] lifestyle modifications. 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 Continue with Wegovy 1 mg, provided a prescription to [facility] specialty pharmacy, but also a handwritten [...] by the end of spring/beginning of summer. 12/29/2024: Weight 152, BMI 27. Patient congratulated and effort, continuing to lose slow, steady weight. Taking Wegovy 1.7 mg, will continue until February for patient's birthday, then consider tapering down. Patient is feeling very well, attending exercise classes, eating higher protein. Continue with Wegovy 1.7 mg. Patient follow-up in 4-6 weeks or sooner as needed #Thyroid disease: patient to continue methimazole 5 mg. Pbx Wire Chief does not want patient taking phentermine as [...] Dictation was accomplished with the use of IQMax voice recognition software, prone to medical misidentifications and grammatical errors. This is unintentional and the practitioner does try to identify and correct these, but some could still be present. Please do not hesitate to contact practitioner for clarification. 12/29/2024 Nutritional counseling (ICD-10 - Z71.3) Joycelyn Is a 39-year-old female who presents office for a weight [...] lifestyle modifications. 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 Patient is hesitant due to the [place]. Discussed with her that options are limited [...] and has been exercising more at the [facility]. Continue with Wegovy 1 mg, provided a prescription to [facility] specialty pharmacy, but also a handwritten [...] by the end of spring/beginning of summer. 12/29/2024: Weight 152, BMI 27. Patient congratulated and effort, continuing to lose slow, steady weight. Taking Wegovy 1.7 mg, will continue until February for patient's birthday, then consider tapering down. Patient is feeling very well, attending exercise classes, eating higher protein. Continue with Wegovy 1.7 mg. Patient follow-up in 4-6 weeks or sooner as needed #Thyroid disease: patient to continue methimazole 5 mg. Pbx Wire Chief does not want patient taking phentermine as [...] Dictation was accomplished with the use of IQMax voice recognition software, prone to medical misidentifications [...] Notes * Joycelyn LOPEZDOB:1985 (39 yo F)Acc No.[id number]:12/29/2024 Patient:??LOPEZ Joycelyn Provider:??RIP YU PA-C :1985?Age:39 Y?Sex:Fe male Date:12/29/2024 Address:[address] [place] [address] [id number] Subjective: * Chief Complaints: * ?1. Patient presents fo r weight management follow up. Previous weight was 154lbs, current weight is standing 152lbs. The patient has no concerns or questions needed to be addressed. * HPI: ?Constitutional:? Joycelyn is a pleasant 39-year-old female who presents the office for a weight management follow-up. Currently taking Wegovy 1.7 mg with compliance, without any side effects, focusing on high-protein, being more active and has increased exercise classes. Has lost 2 pounds, and is very pleased with progress. Unable to complete body scan today due to difficulty with Wi-Fi connection. * ROS:?Constitutional: Patient denies any excessive fatigue [...] 1.7 MG/0.75ML Solution Auto-injector INJECT 1.7MG SUBCUTANEOUSLY ONCE A WEEK , Medication List reviewed and reconciled with the patient * Allergies:??Contrave: hives - Onset Date 08/06/2023. Objective: * Vitals:??HR:73/min, BP:118/7 6mm Hg, Wt:152.0lbs, BMI:27.8Index, Ht: 62 in, Oxygen sat %:99%. * [...] * Assessment: 1.??Over weight - E66.3 (Ely george)??2.??BMI 27.0-27.9,adult - Z68.27??3.??Hyperthyroidism - E05.90??4.??Nutritional counseling - Z71.3?? Joycelyn Is a 39-year-old femal e who presents office for a weight management f/u. 01/02/23: weight 191.5, BMI 35.02- Discuss lifestyle modification is extensively, LAYA cunha. [facility] provided. Patient to work on lifestyle modifications [...] lifestyle modifications. 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 Continue with Wegovy 1 mg, provided a prescription to [facility] specialty pharmacy, but also a handwritten [...] by the end of spring/beginning of summer. 12/29/2024: Weight 152, BMI 27. Patient congratulated and effort, continuing to lose slow, steady weight. Taking Wegovy 1.7 mg, will continue until February for patient's birthday, then consider tapering down. Patient is feeling very well, attending exercise classes, eating higher protein. Continue with Wegovy 1.7 mg. Patient follow-up in 4-6 weeks or sooner as needed #Thyroid disease: patient to continue methimazole 5 mg. Pbx Wire Chief does not want patient taking phentermine as [...] Dictation was accomplished with the use of IQMax voice recognition software, prone to medical misidentifications and grammatical errors. This is unintentional and the practitioner does try to identify and correct these, but some could still be present. Please do not hesitate to contact practitioner for clarification. Plan: * Treatment: * Procedure Codes:??G0447 FCE- FCE BEHAVRL CNSL OBESITY 15 MIN, Modifiers: 59 * Images: Billing Information: * Visit Code:?? 14224 Office Visit, Est Pt., Level 3. Modifiers: 25, SA * Procedure Codes:?? G0447 FCE-FCE BEHAVRL CNSL OBESITY 15 MIN. Modifiers: 59 * Sign off status: Completed true * Provider:??RIP YU PA-C Date:??12/12 History and Physical Notes * HPI (History of Present Illness) Category Sub-Category Detail Notes Category Not es Constitutional Joycelyn is a pl easant 39-year-old female who presents the office for a weight management follow-up. Currently taking Wegovy 1.7 mg with compliance, without any side effects, focusing on high-protein, being more active and has increased exercise classes. Has lost 2 pounds, and is very pleased with progress. Unable to complete body scan today due to difficulty with Wi-Fi connection. Physical Examination Category Sub-Category Detail Notes Section [...]
--- OUTSIDE RECORDS SUMMARY | 2024-12-30 10:26 | XMS_ITS ---
Author Organization [facility] Address [address] [place] [address] Care Team Providers Care Mortuary Technician Name Role Phone RIP YU Unavailable [phone] REASON FOR VISIT refill MEDICATIONS Medication SIG (Take, Route, Fr equency, Duration) Notes Start Date End Date Status Wegovy 1.7 MG/0.75ML INJECT 1.7MG SUBCUT ANEOUSLY ONCE A WEEK for 28 Active Encounters Encounter Location Date Provider Diagnosis [facility] [address] [address] 12/21/2024 RIP YU PLAN OF TREATMENT Medication Medication Name Sig Start Date Stop Date Notes Wegovy 1.7 MG/0.75ML INJECT 1.7MG SUBCUT ANEOUSLY ONCE A WEEK for 28 Progress Notes * Joycelyn LOPEZDOB:1985 (39 yo F)Acc No.[id number]:12/21/2024 Patient:??Joycelyn LOPEZ :1985?Age:39 Y?Sex:Fe male Address:[address] [place] [address] [facility] [place] * Refills?? Refill Wegovy Solution Auto-injector, 1.7 MG/0.75ML, 3 Milliliter, INJECT 1.7MG SUBCUTANEOUSLY ONCE A WEEK, 28, Refills=0 * true * Date:??
--- OUTSIDE RECORDS SUMMARY | 2024-12-30 10:26 | XMS_ITS | Patient Health Record ---
Author Organization [facility] Address [address] [place] [address] Care Team Providers Care Director Plans Name Role Phone RIP YU Unavailable [phone] CHRISTIANE BENITEZARLEN Unavailable [phone] ELIZABETH TAMEZ Unavailable [phone] ALLERGIES Allergen (clinical drug ingredient) Drug/Non Drug Allergy documented on EMR Reaction Allergy Type Onset Date Status bupropion / naltrexone Contrave hives Drug Allergy 07/13 Active REASON FOR REFERRAL Diagnosis 1 Obesity (BMI 30-39.9 ) (E66.9) Diagnosis 2 Hyperthyroidism (E05 .90) Referred Organization [facility] Referred Provider RIP YU Referred Address [address] ,[place], [place],[address], Referred Provider Specialty Other Medica l Care Referral Priority Routine MEDICATIONS Medication SIG (Take, Route, Fr equency, [...] tob: denies drug: denies caffeine: coffee occasionally Alcohol: denies tob: denies drug: denies caffeine: coffee occasionally Alcohol: denies tob: denies drug: denies caffeine: coffee occasionally Alcohol: denies tob: denies drug: denies caffeine: coffee occasionally Alcohol: denies tob: denies drug: denies caffeine: coffee occasionally Alcohol: denies tob: denies drug: denies caffeine: coffee occasionally Alcohol: denies tob: denies drug: denies caffeine: coffee occasionally Alcohol: denies tob: denies drug: denies caffeine: coffee occasionally Alcohol: denies tob: denies drug: denies caffeine: coffee occasionally Alcohol: denies tob: denies drug: denies caffeine: coffee occasionally Alcohol: denies tob: denies drug: denies caffeine: coffee occasionally Alcohol: denies tob: denies drug: denies caffeine: coffee occasionally Alcohol: denies tob: denies drug: denies caffeine: coffee occasionally PROBLEMS Problem Type ICD Code Onset Dates Problem Status W/U Status Risk SNOMED Code Notes Problem Other obesity (E66.8) Active confirmed 573156659 Problem Anxiety (F41.9) Active confirmed Anxiet y (57208743) Problem Obesity (BMI 30-39.9) (E66.9) Active confirmed Obesity (651337812) Problem BMI 35.0-35.9,adult (Z68.35) Active confirmed 951114063 Problem BMI 33.0-33.9,adult (Z68.33) Active confirmed 921067756 Problem Allergic reaction, initial encounter (T78.40XA) Active confirmed Allergic reacti on (627121931) Problem Over weight (E66.3) Active confirmed Overweight (431130245) Problem BMI 32.0-32.9,adult (Z68.32) Active confirmed 220901353 Problem BMI 31.0-31.9,adult (Z68.31) Active confirmed Body mass index 30.00 to 34.99 (753615854349445) Problem BMI 30.0-30.9,adult (Z68.30) Active confirmed 768276775 Problem BMI 34.0-34.9,adult (Z68.34) Active confirmed 379440644 Problem Hyperthyroidism (E05.90) Active confirmed Hyperthyroidism (29336501) Problem Thyroid disease (E07.9) Active confirmed 63985951 VITAL SIGNS Heart Rate 73 /min 12/29/2024 Oximetry 99 % 12/29/2024 Blood pressure diastolic 76 mm Hg 12/29/2024 Height 62 in 12/29/2024 Blood pressure systolic 118 mm Hg 12/29/2024 Weight 152.0 lbs 12/29/2024 BMI 27.8 kg/m2 12/29/2024 Encounters Encounter Location Date Provider Diagnosis [facility] [address] [place] [address] 02/25/[address] [facility] [address] [place] [address] 03/04/[address] [facility] [address] [place] [address] 03/11/[address] [facility] [address] [place] [address] 03/18/[address] [facility] [address] [place] [address] 03/26/[address] [facility] [address] [place] [address] 03/27/[address] [facility] [address] [place] [address] 04/01/[address] [facility] [address] [place] [address] 04/16/[address] [facility] [address] [place] [address] 04/24/[address] [facility] [address] [place] [address] 04/30/[address] [facility] [address] [place] [address] 07/30/[address] [facility] [address] [place] [address] 09/16/[address] [facility] [address] [place] [address] 01/27/2024 ELIZABETH TAMEZ Other obesity E66.8 ; Hyperthyroidism E05.90 and BMI 31.0-31.9,adult Z68.[address] [facility] [address] [place] [address] 04/07/2024 RIP GIGI Other obesity E66.8 ; BMI 32.0-32.9,adult Z68.32 ; Hyperthyroidism E05.90 and Nutritional counseling Z71.3 [facility] [address] [place] [address] 05/27/2024 RIP GIGI Other obesity E66.8 ; BMI 30.0-30.9,adult Z68.30 ; Hyperthyroidism E05.90 and Nutritional counseling Z71.[address] [facility] [address] [place] [address] 07/30/2024 RIP GIGI Over weight E66.3 ; BMI 29.0-29.9,adult Z68.29 ; Hyperthyroidism E05.90 and Nutritional counseling Z71.3 [facility] [address] [place] [address] 09/21/2024 RIP GIGI BMI 29.0-29.9,adult Z68.29 ; Over weight E66.3 ; Hyperthyroidism E05.90 and Nutritional counseling Z71.3 [facility] [address] [place] [address] 11/13/2024 RIP GIGI BMI 28.0-28.9,adult Z68.28 ; Over weight E66.3 ; Hyperthyroidism E05.90 and Nutritional counseling Z71.3 [facility] [address] [place] [address] 12/29/2024 RIP GIGI BMI 27.0-27.9,adult Z68.27 ; Over weight E66.3 ; Hyperthyroidism E05.90 and Nutritional counseling Z71.[address] [address] [address] 02/05/2024 RIP GIGI [address] [place] [address] 02/07/[address] [facility] [place] [address] 02/21/2024 RIP GIGI [facility] [address] [place] [address] 02/25/[address] [place] [address] 03/04/2024 RIP GIGI [facility] [address] [place] [address] 03/18/2024 RIP GIGI [facility] [address] [place] [address] 03/27/[address] [facility] [address] [place] [address] 07/21/2024 RIP GIGI Other obesity E66.[address] [facility] [address] [facility] [place] [address] 09/16/2024 RIP GIGI [address] [place] [address] 10/27/[address] [place] [address] 12/21/2024 RIP GIGI [address] [place] [address] 04/23/2024 RIP GIGI Other obesity E66.8 [address] [place] [address] 07/28/2024 RIP GIGI [address] [place] [address] 10/27/2024 RIP GIGI ASSESSMENTS Encounter Date Diagnosis Assessment Notes Treatment Notes Treatment Clinical Notes Section Notes 01/27/2024 Hyperthyroidism (ICD-10 - E05.90) Joycelyn Is a 37-year-old female who presents office for a weight management f/u. 01/02/23: weight 191.5, BMI 35.02- Discuss lifestyle modification is extensively, LAYA cunha. [facility]. Patient to work on lifestyle modifications [...] lifestyle modifications. She is currently breast-feeding her 86-hvpqu-tfv child, and therefore recommended to not start [...] states that this is something that her viticulture teacher has advised her not to be taking [...] understanding. Will see her in 4 weeks. Patient follow-up in four weeks or sooner as needed #Thyroid disease: patient to continue methimazole 5 mg. Director Of Hemophilia does not want patient taking phentermine as [...] Dictation was accomplished with the use of [employer] voice recognition software, prone to medical misidentifications and grammatical errors. This is unintentional and the practitioner does try to identify and correct these, but some could still be present. Please do not hesitate to contact practitioner for clarification. 04/07/2024 Other obesity (ICD-10 - E66.8) Joycelyn Is a 37-year-old female who presents office for a weight management f/u. 01/02/23: weight 191.5, BMI 35.02- Discuss lifestyle modification is extensively, LAYA cunha. [facility] provided. Patient to work on lifestyle [...] lifestyle modifications. She is currently breast-feeding her 56-kwggf-viv child, and therefore recommended to not start [...] states that this is something that her viticulture teacher has advised her not to be taking [...] Discussed national shortage and prior authorization process. Patient follow-up in 7 weeks or sooner as needed #Thyroid disease: patient to continue methimazole 5 mg. Director Of Hemophilia does not want patient taking phentermine as [...] Dictation was accomplished with the use of [employer] voice recognition software, prone to medical misidentifications and grammatical errors. This is unintentional and the practitioner does try to identify and correct these, but some could still be present. Please do not hesitate to contact practitioner for clarification. 04/07/2024 BMI 32.0-32.9,adult (ICD-10 - Z68.32) Joycelyn Is a 37-year-old female who presents office for a weight management f/u. 01/02/23: weight 191.5, BMI 35.02- Discuss lifestyle modification is extensively, LAYA cunha. [facility] provided. Patient to work on lifestyle modifications [...] lifestyle modifications. She is currently breast-feeding her 92-yplcc-dpj child, and therefore recommended to not start [...] states that this is something that her viticulture teacher has advised her not to be taking [...] Discussed national shortage and prior authorization process. Patient follow-up in 7 weeks or sooner as needed #Thyroid disease: patient to continue methimazole 5 mg. Director Of Hemophilia does not want patient taking phentermine as [...] Dictation was accomplished with the use of [employer] voice recognition software, prone to medical misidentifications and grammatical errors. This is unintentional and the practitioner does try to identify and correct these, but some could still be present. Please do not hesitate to contact practitioner for clarification. 04/23/2024 Other obesity (ICD-10 - E66.8) 05/27/2024 Other obesity (ICD-10 - E66.8) Joycelyn Is a 37-year-old female who presents office for a weight management f/u. 01/02/23: weight 191.5, BMI 35.02- Discuss lifestyle modification is extensively, LAYA cunha. [facility] provided. Patient to work on lifestyle [...] lifestyle modifications. She is currently breast-feeding her 70-cgvtc-yxh child, and therefore recommended to not start [...] states that this is something that her viticulture teacher has advised her not to be taking [...] and has been exercising more at the [facility]. Continue with Wegovy 1 mg, provided a prescription to [facility] pharmacy, but also a handwritten prescription due to concern with supply. Patient will follow-up in July. In the meantime, may need to refill, can continue with 1 mg of Wegovy or consider going up to 1.7 depending on progress. Patient follow-up in 8 weeks or sooner as needed #Thyroid disease: patient to continue methimazole 5 mg. Director Of Hemophilia does not want patient taking phentermine as [...] Dictation was accomplished with the use of [employer] voice recognition software, prone to medical misidentifications and grammatical errors. This is unintentional and the practitioner does try to identify and correct these, but some could still be present. Please do not hesitate to contact practitioner for clarification. 05/27/2024 BMI 30.0-30.9,adult (ICD-10 - Z68.30) Joycelyn Is a 37-year-old female who presents office for a weight management f/u. 01/02/23: weight 191.5, BMI 35.02- Discuss lifestyle modification is extensively, LAYA cunha. [facility] provided. Patient to work on lifestyle modifications [...] lifestyle modifications. She is currently breast-feeding her 28-xnqyy-pid child, and therefore recommended to not start [...] states that this is something that her viticulture teacher has advised her not to be taking [...] and has been exercising more at the [facility]. Continue with Wegovy 1 mg, provided a prescription to [facility] specialty pharmacy, but also a handwritten prescription due to concern with supply. Patient will follow-up in July. In the meantime, may need to refill, can continue with 1 mg of Wegovy or consider going up to 1.7 depending on progress. Patient follow-up in 8 weeks or sooner as needed #Thyroid disease: patient to continue methimazole 5 mg. Director Of Hemophilia does not want patient taking phentermine as [...] Dictation was accomplished with the use of [employer] voice recognition software, prone to medical misidentifications and grammatical errors. This is unintentional and the practitioner does try to identify and correct these, but some could still be present. Please do not hesitate to contact practitioner for clarification. 07/21/2024 Other obesity (ICD-10 - E66.8) 07/30/2024 BMI 29.0-29.9,adult (ICD-10 - Z68.29) Joycelyn Is a 37-year-old female who presents office for a weight management f/u. 01/02/23: weight 191.5, BMI 35.02- Discuss lifestyle modification is extensively, LAYA cunha. [facility] provided. Patient to work on lifestyle [...] lifestyle modifications. She is currently breast-feeding her 95-lfohh-dkc child, and therefore recommended to not start [...] states that this is something that her viticulture teacher has advised her not to be taking [...] and has been exercising more at the [facility]. Continue with Wegovy 1 mg, provided a prescription to [facility] pharmacy, but also a handwritten prescription [...] weekly at the gym. Implementing more protein. Patient follow-up in 8 weeks or sooner as needed #Thyroid disease: patient to continue methimazole 5 mg. Director Of Hemophilia does not want patient taking phentermine as [...] Dictation was accomplished with the use of [employer] voice recognition software, prone to medical misidentifications and grammatical errors. This is unintentional and the practitioner does try to identify and correct these, but some could still be present. Please do not hesitate to contact practitioner for clarification. 07/30/2024 Over weight (ICD-10 - E66.3) Joycelyn Is a 37-year-old female who presents office for a weight management f/u. 01/02/23: weight 191.5, BMI 35.02- Discuss lifestyle modification is extensively, LAYA cunha. [facility] provided. Patient to work on lifestyle [...] lifestyle modifications. She is currently breast-feeding her 16-hvawz-yvi child, and therefore recommended to not start [...] states that this is something that her viticulture teacher has advised her not to be taking [...] and has been exercising more at the [facility]. Continue with Wegovy 1 mg, provided a prescription to [facility] pharmacy, but also a handwritten prescription [...] weekly at the gym. Implementing more protein. Patient follow-up in 8 weeks or sooner as needed #Thyroid disease: patient to continue methimazole 5 mg. Director Of Hemophilia does not want patient taking phentermine as [...] Dictation was accomplished with the use of [employer] voice recognition software, prone to medical misidentifications and grammatical errors. This is unintentional and the practitioner does try to identify and correct these, but some could still be present. Please do not hesitate to contact practitioner for clarification. 09/21/2024 BMI 29.0-29.9,adult (ICD-10 - Z68.29) Joycelyn Is a 37-year-old female who presents office for a weight management f/u. 01/02/23: weight 191.5, BMI 35.02- Discuss lifestyle modification is extensively, LAYA cunha. [facility] provided. Patient to work on lifestyle [...] lifestyle modifications. She is currently breast-feeding her 76-nmaza-fqj child, and therefore recommended to not start [...] states that this is something that her viticulture teacher has advised her not to be taking [...] and has been exercising more at the [facility]. Continue with Wegovy 1 mg, provided a prescription to [facility] pharmacy, but also a handwritten prescription [...] Continue with increased protein and resistance training. Patient follow-up in 8 weeks or sooner as needed #Thyroid disease: patient to continue methimazole 5 mg. Director Of Hemophilia does not want patient taking phentermine as [...] Dictation was accomplished with the use of [employer] voice recognition software, prone to medical misidentifications and grammatical errors. This is unintentional and the practitioner does try to identify and correct these, but some could still be present. Please do not hesitate to contact practitioner for clarification. 11/13/2024 BMI 28.0-28.9,adult (ICD-10 - Z68.28) Joycelyn Is a 37-year-old female who presents office for a weight management f/u. 01/02/23: weight 191.5, BMI 35.02- Discuss lifestyle modification is extensively, LAYA cunha. [facility] provided. Patient to work on lifestyle [...] lifestyle modifications. She is currently breast-feeding her 65-owvvx-emw child, and therefore recommended to not start [...] states that this is something that her viticulture teacher has advised her not to be taking [...] and has been exercising more at the [facility]. Continue with Wegovy 1 mg, provided a prescription to [facility] pharmacy, but also a handwritten prescription [...] disease: patient to continue methimazole 5 mg. Director Of Hemophilia does not want patient taking phentermine as [...] Dictation was accomplished with the use of [employer] voice recognition software, prone to medical misidentifications and grammatical errors. This is unintentional and the practitioner does try to identify and correct these, but some could still be present. Please do not hesitate to contact practitioner for clarification. 01/27/2024 Other obesity (ICD-10 - E66.8) Joycelyn Is a 37-year-old female who presents office for a weight management f/u. 01/02/23: weight 191.5, BMI 35.02- Discuss lifestyle modification is extensively, LAYA cunha. [facility] provided. Patient to work on lifestyle [...] lifestyle modifications. She is currently breast-feeding her 55-zsiok-era child, and therefore recommended to not start [...] states that this is something that her viticulture teacher has advised her not to be taking [...] understanding. Will see her in 4 weeks. Patient follow-up in four weeks or sooner as needed #Thyroid disease: patient to continue methimazole 5 mg. Director Of Hemophilia does not want patient taking phentermine as [...] Dictation was accomplished with the use of [employer] voice recognition software, prone to medical misidentifications and grammatical errors. This is unintentional and the practitioner does try to identify and correct these, but some could still be present. Please do not hesitate to contact practitioner for clarification. 12/29/2024 BMI 27.0-27.9,adult (ICD-10 - Z68.27) Joycelyn Is a 39-year-old female who presents office for a weight management f/u. 01/02/23: weight 191.5, BMI 35.02- Discuss lifestyle modification is extensively, LAYA cunha. [facility] provided. Patient to work on lifestyle [...] lifestyle modifications. She is currently breast-feeding her 68-fcdog-ldm child, and therefore recommended to not start [...] states that this is something that her viticulture teacher has advised her not to be taking [...] and has been exercising more at the [facility]. Continue with Wegovy 1 mg, provided a prescription to [facility] pharmacy, but also a handwritten prescription [...] disease: patient to continue methimazole 5 mg. Director Of Hemophilia does not want patient taking phentermine as [...] Dictation was accomplished with the use of [employer] voice recognition software, prone to medical misidentifications [...] Discuss lifestyle modification is extensively, LAYA cunha. [facility] provided. Patient to work on lifestyle [...] lifestyle modifications. She is currently breast-feeding her 80-arhhw-vbk child, and therefore recommended to not start [...] states that this is something that her viticulture teacher has advised her not to be taking [...] and has been exercising more at the [facility]. Continue with Wegovy 1 mg, provided a prescription to [facility] pharmacy, but also a handwritten prescription [...] disease: patient to continue methimazole 5 mg. Director Of Hemophilia does not want patient taking phentermine as [...] Dictation was accomplished with the use of [employer] voice recognition software, prone to medical misidentifications and grammatical errors. This is unintentional and the practitioner does try to identify and correct these, but some could still be present. Please do not hesitate to contact practitioner for clarification. 01/27/2024 BMI 31.0-31.9,adult (ICD-10 - Z68.31) Joycelyn Is a 37-year-old female who presents office for a weight management f/u. 01/02/23: weight 191.5, BMI 35.02- Discuss lifestyle modification is extensively, LAYA cunha. [facility] provided. Patient to work on lifestyle [...] lifestyle modifications. She is currently breast-feeding her 48-deogh-bsi child, and therefore recommended to not start [...] states that this is something that her viticulture teacher has advised her not to be taking [...] understanding. Will see her in 4 weeks. Patient follow-up in four weeks or sooner as needed #Thyroid disease: patient to continue methimazole 5 mg. Director Of Hemophilia does not want patient taking phentermine as [...] Dictation was accomplished with the use of [employer] voice recognition software, prone to medical misidentifications [...] lifestyle modifications. She is currently breast-feeding her 24-brpiu-vtt child, and therefore recommended to not start [...] states that this is something that her viticulture teacher has advised her not to be taking [...] and has been exercising more at the [facility]. Continue with Wegovy 1 mg, provided a prescription to [facility] pharmacy, but also a handwritten prescription [...] disease: patient to continue methimazole 5 mg. Director Of Hemophilia does not want patient taking phentermine as [...] Dictation was accomplished with the use of [employer] voice recognition software, prone to medical misidentifications [...] Discuss lifestyle modification is extensively, LAYA cunha. [facility] provided. Patient to work on lifestyle modifications [...] lifestyle modifications. She is currently breast-feeding her 69-ynvxz-yqf child, and therefore recommended to not start [...] states that this is something that her viticulture teacher has advised her not to be taking [...] and has been exercising more at the [facility]. Continue with Wegovy 1 mg, provided a prescription to [facility] pharmacy, but also a handwritten prescription [...] disease: patient to continue methimazole 5 mg. Director Of Hemophilia does not want patient taking phentermine as [...] Dictation was accomplished with the use of [employer] voice recognition software, prone to medical misidentifications [...] Discuss lifestyle modification is extensively, LAYA cunha. [facility] provided. Patient to work on lifestyle [...] lifestyle modifications. She is currently breast-feeding her 34-xkflt-iog child, and therefore recommended to not start [...] states that this is something that her viticulture teacher has advised her not to be taking [...] and has been exercising more at the [facility]. Continue with Wegovy 1 mg, provided a prescription to [facility], but also a handwritten prescription [...] disease: patient to continue methimazole 5 mg. Director Of Hemophilia does not want patient taking phentermine as [...] Dictation was accomplished with the use of [employer] voice recognition software, prone to medical misidentifications and grammatical errors. This is unintentional and the practitioner does try to identify and correct these, but some could still be present. Please do not hesitate to contact practitioner for clarification. 09/21/2024 Over weight (ICD-10 - E66.3) Joycelyn Is a 37-year-old female who presents office for a weight management f/u. 01/02/23: weight 191.5, BMI 35.02- Discuss lifestyle modification is extensively, LAYA cunha. [facility] provided. Patient to work on lifestyle [...] lifestyle modifications. She is currently breast-feeding her 72-ecirv-tgk child, and therefore recommended to not start [...] states that this is something that her viticulture teacher has advised her not to be taking [...] and has been exercising more at the [facility]. Continue with Wegovy 1 mg, provided a prescription to [facility], but also a handwritten prescription [...] Continue with increased protein and resistance training. Patient follow-up in 8 weeks or sooner as needed #Thyroid disease: patient to continue methimazole 5 mg. Director Of Hemophilia does not want patient taking phentermine as [...] Dictation was accomplished with the use of [employer] voice recognition software, prone to medical misidentifications and grammatical errors. This is unintentional and the practitioner does try to identify and correct these, but some could still be present. Please do not hesitate to contact practitioner for clarification. 07/30/2024 Hyperthyroidism (ICD-10 - E05.90) Joycelyn Is a [...] lifestyle modifications. 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 Continue with Wegovy 1 mg, provided a prescription to [facility], but also a handwritten prescription [...] weekly at the gym. Implementing more protein. Patient follow-up in 8 weeks or sooner as needed #Thyroid disease: patient to continue methimazole 5 mg. Director Of Hemophilia does not want patient taking phentermine as [...] Dictation was accomplished with the use of [employer] voice recognition software, prone to medical misidentifications and grammatical errors. This is unintentional and the practitioner does try to identify and correct these, but some could still be present. Please do not hesitate to contact practitioner for clarification. 05/27/2024 Hyperthyroidism (ICD-10 - E05.90) Joycelyn Is a 37-year-old female who presents office for a weight management f/u. 01/02/23: weight 191.5, BMI 35.02- Discuss lifestyle modification is extensively, LAYA cunha. [facility] provided. Patient to work on lifestyle [...] lifestyle modifications. She is currently breast-feeding her 42-calwq-lxg child, and therefore recommended to not start [...] states that this is something that her viticulture teacher has advised her not to be taking [...] and has been exercising more at the [facility]. Continue with Wegovy 1 mg, provided a prescription to [facility], but also a handwritten prescription due to concern with supply. Patient will follow-up in July. In the meantime, may need to refill, can continue with 1 mg of Wegovy or consider going up to 1.7 depending on progress. Patient follow-up in 8 weeks or sooner as needed #Thyroid disease: patient to continue methimazole 5 mg. Director Of Hemophilia does not want patient taking phentermine as [...] Dictation was accomplished with the use of [employer] voice recognition software, prone to medical misidentifications and grammatical errors. This is unintentional and the practitioner does try to identify and correct these, but some could still be present. Please do not hesitate to contact practitioner for clarification. 04/07/2024 Hyperthyroidism (ICD-10 - E05.90) Joycelyn Is a 37-year-old female who presents office for a weight management f/u. 01/02/23: weight 191.5, BMI 35.02- Discuss lifestyle modification is extensively, LAYA cunha. [facility] provided. Patient to work on lifestyle [...] lifestyle modifications. She is currently breast-feeding her 82-ppgao-kps child, and therefore recommended to not start [...] states that this is something that her viticulture teacher has advised her not to be taking [...] Discussed national shortage and prior authorization process. Patient follow-up in 7 weeks or sooner as needed #Thyroid disease: patient to continue methimazole 5 mg. Director Of Hemophilia does not want patient taking phentermine as [...] Dictation was accomplished with the use of [employer] voice recognition software, prone to medical misidentifications and grammatical errors. This is unintentional and the practitioner does try to identify and correct these, but some could still be present. Please do not hesitate to contact practitioner for clarification. 04/07/2024 Nutritional counseling (ICD-10 - Z71.3) Joycelyn Is a 37-year-old female who presents office for a weight management f/u. 01/02/23: weight 191.5, BMI 35.02- Discuss lifestyle modification is extensively, LAYA cunha. [facility] provided. Patient to work on lifestyle modifications [...] lifestyle modifications. She is currently breast-feeding her 94-buojc-vwk child, and therefore recommended to not start [...] states that this is something that her viticulture teacher has advised her not to be taking [...] Discussed national shortage and prior authorization process. Patient follow-up in 7 weeks or sooner as needed #Thyroid disease: patient to continue methimazole 5 mg. Director Of Hemophilia does not want patient taking phentermine as [...] Dictation was accomplished with the use of [employer] voice recognition software, prone to medical misidentifications and grammatical errors. This is unintentional and the practitioner does try to identify and correct these, but some could still be present. Please do not hesitate to contact practitioner for clarification. 05/27/2024 Nutritional counseling (ICD-10 - Z71.3) Joycelyn Is a 37-year-old female who presents office for a weight management f/u. 01/02/23: weight 191.5, BMI 35.02- Discuss lifestyle modification is extensively, LAYA cunha. [facility] provided. Patient to work on lifestyle [...] lifestyle modifications. She is currently breast-feeding her 66-xycjh-uyi child, and therefore recommended to not start [...] states that this is something that her viticulture teacher has advised her not to be taking [...] and has been exercising more at the [facility]. Continue with Wegovy 1 mg, provided a prescription to [facility], but also a handwritten prescription due to concern with supply. Patient will follow-up in July. In the meantime, may need to refill, can continue with 1 mg of Wegovy or consider going up to 1.7 depending on progress. Patient follow-up in 8 weeks or sooner as needed #Thyroid disease: patient to continue methimazole 5 mg. Director Of Hemophilia does not want patient taking phentermine as [...] Dictation was accomplished with the use of [employer] voice recognition software, prone to medical misidentifications and grammatical errors. This is unintentional and the practitioner does try to identify and correct these, but some could still be present. Please do not hesitate to contact practitioner for clarification. 07/30/2024 Nutritional counseling (ICD-10 - Z71.3) Joycelyn Is a 37-year-old female who presents office for a weight management f/u. 01/02/23: weight 191.5, BMI 35.02- Discuss lifestyle modification is extensively, LAYA cunha. [facility] provided. Patient to work on lifestyle [...] lifestyle modifications. She is currently breast-feeding her 72-ifxzl-iqu child, and therefore recommended to not start [...] states that this is something that her viticulture teacher has advised her not to be taking [...] and has been exercising more at the [facility]. Continue with Wegovy 1 mg, provided a prescription to [facility], but also a handwritten prescription [...] weekly at the gym. Implementing more protein. Patient follow-up in 8 weeks or sooner as needed #Thyroid disease: patient to continue methimazole 5 mg. Director Of Hemophilia does not want patient taking phentermine as [...] Dictation was accomplished with the use of [employer] voice recognition software, prone to medical misidentifications and grammatical errors. This is unintentional and the practitioner does try to identify and correct these, but some could still be present. Please do not hesitate to contact practitioner for clarification. 09/21/2024 Hyperthyroidism (ICD-10 - E05.90) Joycelyn Is a 37-year-old female who presents office for a weight management f/u. 01/02/23: weight 191.5, BMI 35.02- Discuss lifestyle modification is extensively, LAYA cunha. [facility] provided. Patient to work on lifestyle [...] lifestyle modifications. She is currently breast-feeding her 58-anqsp-eqf child, and therefore recommended to not start [...] states that this is something that her viticulture teacher has advised her not to be taking [...] and has been exercising more at the [facility]. Continue with Wegovy 1 mg, provided a prescription to [facility], but also a handwritten prescription [...] Continue with increased protein and resistance training. Patient follow-up in 8 weeks or sooner as needed #Thyroid disease: patient to continue methimazole 5 mg. Director Of Hemophilia does not want patient taking phentermine as [...] Dictation was accomplished with the use of [employer] voice recognition software, prone to medical misidentifications [...] lifestyle modifications. She is currently breast-feeding her 32-jqroe-xxz child, and therefore recommended to not start [...] states that this is something that her viticulture teacher has advised her not to be taking [...] and has been exercising more at the [facility]. Continue with Wegovy 1 mg, provided a prescription to [facility], but also a handwritten prescription [...] disease: patient to continue methimazole 5 mg. Director Of Hemophilia does not want patient taking phentermine as [...] Dictation was accomplished with the use of [employer] voice recognition software, prone to medical misidentifications [...] Discuss lifestyle modification is extensively, LAYA cunha. [facility] provided. Patient to work on lifestyle [...] lifestyle modifications. She is currently breast-feeding her 59-ppnbq-lub child, and therefore recommended to not start [...] states that this is something that her viticulture teacher has advised her not to be taking [...] and has been exercising more at the [facility]. Continue with Wegovy 1 mg, provided a prescription to [facility], but also a handwritten prescription [...] disease: patient to continue methimazole 5 mg. Director Of Hemophilia does not want patient taking phentermine as [...] Dictation was accomplished with the use of [employer] voice recognition software, prone to medical misidentifications and grammatical errors. This is unintentional and the practitioner does try to identify and correct these, but some could still be present. Please do not hesitate to contact practitioner for clarification. 09/21/2024 Nutritional counseling (ICD-10 - Z71.3) Joycelyn Is a 37-year-old female who presents office for a weight management f/u. 01/02/23: weight 191.5, BMI 35.02- Discuss lifestyle modification is extensively, LAYA cunha. [facility] provided. Patient to work on lifestyle modifications [...] lifestyle modifications. She is currently breast-feeding her 75-vzpgp-tvl child, and therefore recommended to not start [...] states that this is something that her viticulture teacher has advised her not to be taking [...] and has been exercising more at the [facility]. Continue with Wegovy 1 mg, provided a prescription to [facility], but also a handwritten prescription [...] Continue with increased protein and resistance training. Patient follow-up in 8 weeks or sooner as needed #Thyroid disease: patient to continue methimazole 5 mg. Director Of Hemophilia does not want patient taking phentermine as [...] Dictation was accomplished with the use of [employer] voice recognition software, prone to medical misidentifications and grammatical errors. This is unintentional and the practitioner does try to identify and correct these, but some could still be present. Please do not hesitate to contact practitioner for clarification. PLAN OF TREATMENT No Information Insurance Providers Payer Name Payer Address Payer Phone Subscriber Number Group Number Insured Name Patient Relationship to Insured Coverage Start Date Coverage End Date [facility] [address] [place] [address] [phone] [id number] Lopez, Joycelyn Self - patient is the insured MEDICATIONS ADMINISTERED Medication Instructions Date of Administration Dosage Notes [facility] B12 INJECTION 01/02/2023 lot # [id number] Semaglutide 02/25/2024 0.25 Semaglutide 03/04/2024 0.25 mg Semaglutide 03/11/2024 0.25 mg Semaglutide 03/18/2024 0.25 mg LRQ SQ Semaglutide 04/01/2024 0.5 mg Semaglutide 04/07/2024 0.5 Semaglutide 04/16/2024 0.5 Semaglutide 04/24/2024 0.5 mg LRQ SQ MEDICAL (GENERAL) HISTORY Medical History History ICD Code Hyperthyroidism E05.90 Obesity (BMI 30-39.9) E66.9 Anxiety F41.9 Sciatica, unspecified side M54.30 Surgical History Surgery Date(Month/Year) C Section 2 times
== END 2024-12-30 09:57 | disposition home or self-care (01) ==
LOC: HO.XRAY 09:56
PROVIDERS: PCP Physician Assistant; Visit Provider Physician Assistant
DX: M54.42 Lumbago with sciatica, left side (principal)
CPT/HCPCS: 72100

== ENCOUNTER → 2024-12-30 10:05 | Outpatient (BNV) | payer BC, SELFPAY | PROVIDERS: PCP Physician Assistant; Visit Provider Radiology Diagnostic Radiology | DX: M54.42 Lumbago with sciatica, left side (principal) | CPT/HCPCS: 72100 ==